=== PATIENT | female | born 1955 | race Caucasian/White ===

== ENCOUNTER → 2017-09-08 | Outpatient (CLI) | payer SELFPAY ==
[~2017-09-08] MED LIST: ALP5 PO; BACDS PO; BUTA1CAP4 PO; DON PO; FUR20 PO; KETO10TA PO; NOR5/325 PO; SITA100T9 PO; SUMA25TA26 PO; [UNRECOGNIZED DRUG - OTHER]
--- NOTE | 2017-09-08 11:19 | RADIOLOGY IMAGING REPORT ---
FACILITY: [facility] - [place] PATIENT NAME: Deepthi Guzman : 1955 MR: [id number] V: [id number] EXAM DATE: ORDERING PHYSICIAN: GARRICK SLOAN TECHNOLOGIST: [place] [facility] [place] Deepthi Guzman : 1955 Visit/Account:[id number] Date of Sevice: 09/08/2017 Exam type: CHEST PA AND LAT History: Cough and shortness of breath x1 week Comparison: None. Findings: The lungs are free of acute effusions, infiltrates or edema. Cardiac silhouette is normal in size. The trachea is midline. There is a implanted right port with distal tip projecting over the superior vena cava. IMPRESSION: 1. No acute cardiopulmonary process is seen Report Dictated By: Guadalupe Peña MD at 09/08/2017 11:13 AM Report E-Signed By: Guadalupe Peña MD at 09/08/2017 11:13 AM [id number]
== END ==
LOC: RAD 10:09
PROVIDERS: ATTEND Nurse Practitioner Family
DX: R05 Cough (principal); R06.02 Shortness of breath
CPT/HCPCS: 71046

== ENCOUNTER 2017-09-15 18:23 | Emergency (ER) | payer SELFPAY ==
[~2017-09-15] VITALS: Ht 160 cm; Wt 60.8 kg
--- NOTE | 2017-09-15 18:36 | ER Report ---
History and Physical Time Seen By MD: 18:36 Hx. of Stated Complaint: PT WORRIED ABOUT POSSIBLE PORT INFECTION. HPI/ROS CHIEF COMPLAINT: Cough. Concern about possible port infection. HISTORY OF PRESENT ILLNESS: This is a 62 year old female. She has had a productive cough for over a week. Has been on Clindamycin and Doxycycline, which she finished about 5 days ago. Had a chest x-ray after seeing her primary care provider last week which was negative. Was prescribed 6 days of steroids and is feeling a little better. No fevers or chills noted. She does have an old port that has not been accessed in years. She is having some soreness, redness and mild swelling around the skin in the area. Has had infections of the port in the past, treated effectively with antibiotics in the past. Slight swelling in both sides of her neck as well. REVIEW OF SYSTEMS: Cardiovascular: No chest pain, no palpitations. Gastrointestinal: No vomiting, no abdominal pain. Genitourinary: No dysuria or frequency. Musculoskeletal: No back pain. No musculoskeletal pain. Allergies: Coded Allergies: sulfamethoxazole (Verified Allergy, Intermediate, "MOUTH BREAKS OUT IN SORES", 09/15/17) trimethoprim (Verified Allergy, Intermediate, "MOUTH BREAKS OUT IN SORES" , 09/15/17) codeine (Verified Allergy, Mild, FEELS LIKE BEING SQUEEZED TO , ) morphine (Verified Allergy, Mild, FEELS LIKE BEING SQUEEZED TO , 09/15) Home Meds Reported Medications Butalb/Acetaminophen/Caffeine (FIORICET 50-300-40 MG CAPSULE) 1 Each Capsule, 1 EACH PO Q6H Y for HEADACHES, CAPSULE 03/16/15 Sumatriptan Succinate (Imitrex) 25 Mg Tablet, 25 MG PO PRN 08/04/07 Alprazolam (Xanax) 0.5 Mg Tab, 0.25 MG PO TID 1 08/03/07 Reviewed Nurses Notes: Yes Hx Smoking: No Smoking Status: Never Smoker Hx Substance Use Disorder: No Hx Alcohol Use: No Constitutional Vital Sign - Last 24 Hours 09/15/17 09/15/17 09/15/17 09/15/17 18:27 18:28 18:29 19:00 Temp 98.3 Pulse 75 Resp 16 B/P (MAP) 201/100 (133) 180/84 (116) 180/84 159/70 (99) Pulse Ox 94 O2 Delivery Room Air 09/15/17 09/15/17 09/15/17 09/15/17 19:08 19:23 19:30 19:38 Pulse 69 70 63 B/P (MAP) 137/81 (99) Pulse Ox 93 93 93 09/15/17 09/15/17 19:53 20:00 Pulse 65 B/P (MAP) 125/75 (92) Pulse Ox 93 Physical Exam General Appearance: The patient is alert, has no immediate need for airway protection and no current signs of toxicity. Eyes: Pupils equal and round, no injection. ENT: Normal oral mucosa. Moist mucous membranes. Normal posterior oropharynx. Tympanic membranes are normal. Neck: Neck is supple and non tender. Some soft tissue swelling at base of anterior neck bilaterally. Respiratory: Chest is non tender, lungs are clear to auscultation. Cardiac: regular rate and rhythm Skin: Some redness over her port on right anterior chest. Tender to palpation as well. DIFFERENTIAL DIAGNOSIS: After history and physical exam differential diagnosis was considered for redness over old port, questionable for infectious process. Cough for a couple of weeks now, normal x-ray last week. Will check labs and x- ray. Medical Decision Making Data Points Result Diagram: 09/15/17191209/15/171912 Laboratory Hematology Test 09/15/17 19:03 09/15/17 19:13 Influenza Virus Type A (PCR) Negative (NEGATIVE) Influenza Virus Type B (PCR) Negative (NEGATIVE) Red Blood Count 4.78 M/uL (4.17-5.56) Mean Corpuscular Volume 83.7 fL (80.0-96.0) Mean Corpuscular Hemoglobin 28.2 pg (26.0-33.0) Mean Corpuscular Hemoglobin Concent 33.7 g/dL (32.0-36.0) Red Cell Distribution Width 13.8 % (11.5-14.5) Mean Platelet Volume 7.8 fL (7.2-11.1) Neutrophils (%) (Auto) 52.9 % (39.4-72.5) Lymphocytes (%) (Auto) 38.2 % (17.6-49.6) Monocytes (%) (Auto) 6.9 % (4.1-12.4) Eosinophils (%) (Auto) 1.4 % (0.4-6.7) Basophils (%) (Auto) 0.6 % (0.3-1.4) Nucleated RBC Relative Count (auto) 0.0 /100WBC Neutrophils # (Auto) 4.4 K/uL (2.0-7.4) Lymphocytes # (Auto) 3.1 K/uL (1.3-3.6) Monocytes # (Auto) 0.6 K/uL (0.3-1.0) Eosinophils # (Auto) 0.1 K/uL (0.0-0.5) Basophils # (Auto) 0.0 K/uL (0.0-0.1) Nucleated RBC Absolute Count (auto) 0.00 K/uL Sodium Level 139 mmol/L (137-145) Potassium Level 3.3 mmol/L (3.5-5.0) Chloride Level 105 mmol/L (98-107) Carbon Dioxide Level 23 mmol/L (22-31) Blood Urea Nitrogen 11 mg/dl (7-18) Creatinine 0.60 mg/dl (0.52-1.04) Glomerular Filtration Rate Calc > 60.0 Random Glucose 98 mg/dl (75-110) Calcium Level 8.7 mg/dl (8.4-10.2) Total Bilirubin 0.3 mg/dl (0.2-1.3) Aspartate Amino Transf (AST/SGOT) 31 U/L (0-35) Alanine Aminotransferase (ALT/SGPT) 36 U/L (0-56) Alkaline Phosphatase 126 U/L (0-126) Total Protein 6.8 gm/dl (6.3-8.2) Albumin 3.5 g/dl (3.5-5.0) Chemistry Test 09/15/17 19:03 09/15/17 19:13 Influenza Virus Type A (PCR) Negative (NEGATIVE) Influenza Virus Type B (PCR) Negative (NEGATIVE) White Blood Count 8.2 k/uL (4.5-11.0) Red Blood Count 4.78 M/uL (4.17-5.56) Hemoglobin 13.5 g/dL (12.0-16.0) Hematocrit 40.0 % (34.0-47.0) Mean Corpuscular Volume 83.7 fL (80.0-96.0) Mean Corpuscular Hemoglobin 28.2 pg (26.0-33.0) Mean Corpuscular Hemoglobin Concent 33.7 g/dL (32.0-36.0) Red Cell Distribution Width 13.8 % (11.5-14.5) Platelet Count 300 K/uL (150-450) Mean Platelet Volume 7.8 fL (7.2-11.1) Neutrophils (%) (Auto) 52.9 % (39.4-72.5) Lymphocytes (%) (Auto) 38.2 % (17.6-49.6) Monocytes (%) (Auto) 6.9 % (4.1-12.4) Eosinophils (%) (Auto) 1.4 % (0.4-6.7) Basophils (%) (Auto) 0.6 % (0.3-1.4) Nucleated RBC Relative Count (auto) 0.0 /100WBC Neutrophils # (Auto) 4.4 K/uL (2.0-7.4) Lymphocytes # (Auto) 3.1 K/uL (1.3-3.6) Monocytes # (Auto) 0.6 K/uL (0.3-1.0) Eosinophils # (Auto) 0.1 K/uL (0.0-0.5) Basophils # (Auto) 0.0 K/uL (0.0-0.1) Nucleated RBC Absolute Count (auto) 0.00 K/uL Glomerular Filtration Rate Calc > 60.0 Calcium Level 8.7 mg/dl (8.4-10.2) Total Bilirubin 0.3 mg/dl (0.2-1.3) Aspartate Amino Transf (AST/SGOT) 31 U/L (0-35) Alanine Aminotransferase (ALT/SGPT) 36 U/L (0-56) Alkaline Phosphatase 126 U/L (0-126) Total Protein 6.8 gm/dl (6.3-8.2) Albumin 3.5 g/dl (3.5-5.0) ED Course/Re-evaluation Clinical Indication for ER IV: IV Access ED Course Labs were obtained including peripheral cultures. Labs unremarkable. Briefly discussed the case with Dr. Silva. I recommended to the patient to follow-up with Dr. Silva in the office to discuss removal of the port as it is not being used and likely will not be used in the future. Decision to Disposition Date: Sep 15, 2017 Decision to Disposition Time: 20:13 Depart Departure Latest Vital Signs Vital Signs Date Time Temp Pulse Resp B/P (MAP) Pulse Ox O2 Delivery O2 Flow Rate FiO2 09/15/17 20:00 125/75 (92) 09/15/17 19:53 65 93 09/15/17 18:29 98.3 16 Room Air Impression: Primary Impression: Viral upper respiratory illness Condition: Improved Disposition: HOME OR SELF-CARE Referrals: GARRICK SLOAN (PCP) DIMITRIS SILVA MD Patient Instructions: Upper Respiratory Infection (ED) Additional Instructions: Your cough appears to be from a viral upper respiratory infection. Rest and increase fluid intake. Give this more time. Labs are unremarkable other than a slightly low potassium. Eat foods that have an increase in potassium. For the question of a port infection, please call Dr. Silva. He can see you in the office to address this. Based on blood work, would no recommend starting another antibiotic. Blood cultures have been obtained and should be available in 48 hours. GASPER SANTOS MD Sep 15, 2017 18:36
[2017-09-15 19:25] LABS: PLATELET COUNT, AUTOMATED 300 K/uL (150-450)
--- NOTE | 2017-09-15 19:36 | RADIOLOGY IMAGING REPORT ---
FACILITY: [facility] PATIENT NAME: Deepthi Guzman : 1955 MR: [id number] V: [id number] EXAM DATE: ORDERING PHYSICIAN: GASPER SANTOS TECHNOLOGIST: Location: [facility] - [place] Patient: Deepthi Guzman : 1955 Visit/Account:[id number] Date of Sevice: 09/15/2017 2 VIEWS CHEST INDICATION: Cough for 2 weeks. COMPARISON: 09/08/2017. FINDINGS: Cardiomediastinal silhouette and pulmonary vessels within normal limits. Right Port-A-Cath is in plac e with tip in SVC and unchanged. There is no focal infiltrate or lobar consolidation. There is no pneumothorax or pleural effusion. No nodule. Upper abdomen is unremarkable. No acute bony abnormality. IMPRESSION: 1. No acute cardiopulmonary process. Report Dictated By: Giovany Ratliff at 09/15/2017 7:29 PM Report E-Signed By: Giovany Ratliff at 09/15/2017 7:32 PM WSN:[id number]
[2017-09-15 20:00] VITALS: BP 125/75
[2017-09-17] MEDS ORDERED: SUMA100T33 PO (11:16)
== END 2017-09-15 20:24 | disposition home or self-care (01) ==
LOC: ER 18:44
DX: J06.9 Acute upper respiratory infection, unspecified (principal)
CPT/HCPCS: 36415; 71046; 82040; 82247; 82310; 82374; 82435; 82565; 82947; 84075; 84132; 84155; 84295; 84450; 84460; 84520; 85025; 87040; 87502; 99284

== ENCOUNTER → 2017-09-17 | Outpatient (CLI) | payer SELFPAY ==
[~2017-09-17] MED LIST changes: +SUMA100T33 PO
== END ==
LOC: LAB 11:30
PROVIDERS: ATTEND Surgery
DX: T80.219A Unspecified infection due to central venous catheter, initial encounter (principal)
CPT/HCPCS: 87070; 87071; 87073; 87205